=== PATIENT | female | born 1980 | race Caucasian/White ===

== ENCOUNTER 2021-10-20 10:30 | Inpatient (IN) | payer BC ==
--- NOTE | 2021-10-20 10:57 | EDM.PDOC ---
ED HPI GENERAL MEDICAL PROBLEM - General Stated Complaint: POSSIBLE KIDNEY INFECTIOIN Time Seen by Provider: 10/20/21 10:49 Source of Information: Reports: Patient, Old Records, RN, RN Notes Reviewed History Limitations: Reports: No Limitations - History of Present Illness INITIAL COMMENTS - FREE TEXT/NARRATIVE: Sammi is a 41 y/o female with stage 4 chronic kidney disease due to polycystic kidney disease who presents to the ED via personal vehicle with complaints of flank pain, dysuria, and hematuria. The patient states she has chronic bilateral lower abdominal pain and bilateral flank pain, however one week ago her pain worsened and she began to experience dysuria and hematuria. Additionally, she notes inability to fully urinate, fever, chills, and nausea with a TMax of 101.6 She has taken Tylenol-4 approximately one hour prior to her arrival to this facility. The patient denies chest pain/pressure, palpitations, shortness of breath, vomiting, or diarrhea. She attests to smoking 1/4 pack of cigarettes per day; she denies alcohol or recreational drug use. Right Flank Pain Score (Numeric/FACES): 6 headache Pain Score (Numeric/FACES): 8 - Related Data Allergies Allergy/AdvReac Type Severity Reaction Status Date / Time No Known Allergies Allergy Verified 10/20/21 11:00 Home Meds: Home Meds Aspirin [Inocente Chewable Aspirin] 81 mg PO DAILY 06/22/15 [History] Cholecalciferol (Vitamin D3) [D3-2000] 5,000 unit PO DAILY 06/22/15 [History] Acetaminophen [Tylenol Extra Strength] 1,000 mg PO Q6HR PRN 11/23/20 [History] Escitalopram Oxalate 10 mg PO DAILY 11/23/20 [History] Escitalopram Oxalate 20 mg PO DAILY 11/23/20 [History] Furosemide 20 mg PO DAILY 11/23/20 [History] Metoprolol Succinate 100 mg PO DAILY 11/23/20 [History] Multivitamin [Multi-Vitamin Daily] 1 tab PO DAILY 11/23/20 [History] hydrOXYzine HCL [hydrOXYzine] 25 mg PO BEDTIME 11/23/20 [History] Biotin 5 mg PO ASDIRECTED 11/24/20 [History] Hydrocodone/Acetaminophen [HYDROcodone-Acetaminophen 5-325 MG] 5 - 325 mg PO Q6HR PRN 11/24/20 [History] Calcium Carb/Vitamin D3/Vit K1 [Calcium + D Soft Chewable Tab] 1 tab PO DAILY 10/20/21 [History] amLODIPine [Norvasc] 5 mg PO DAILY 10/20/21 [History] cefTRIAXone [Rocephin] 1 gm IV Q24H vial 10/21/21 [Rx] Past Medical History Other HEENT History: states has blurred vision Other Cardiovascular History: 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 ED EXAM, RENAL/ - Physical Exam Exam: See Below Exam Limited By: No Limitations General Appearance: Alert, No Apparent Distress, Other (Ill-appearing ). No: Active Emesis Eye Exam: Bilateral Eye: EOMI, Normal Inspection, PERRL (3mm) Ears: Normal External Exam, Hearing Grossly Normal Nose: Normal Inspection, Normal Mucosa, No Blood Throat/Mouth: Normal Inspection, Normal Oropharynx, Normal Voice, No Airway Compromise Head: Atraumatic, Normocephalic Neck: Normal Inspection, Supple, Non-Tender, Full Range of Motion Respiratory/Chest: No Respiratory Distress, Lungs Clear, Normal Breath Sounds, No Accessory Muscle Use, Chest Non-Tender. No: Crackles, Rales, Rhonchi, Wheezing Cardiovascular: Normal Peripheral Pulses, Regular Rate, Rhythm, No Edema, No Gallop, No JVD, No Murmur, No Rub, Tachycardia GI/Abdominal: Soft, No Distention, No Abnormal Bruit, No Mass, Pelvis Stable, Tender (To bilateral lower quadrants), Abnormal Bowel Sounds (Hypoactive bowel sounds). No: Guarding, Rigid, Rebound (Female) Exam: Deferred Rectal (Female) Exam: Deferred Back Exam: Full Range of Motion, CVA Tenderness (L), CVA Tenderness (R). No: Muscle Spasm, Paraspinal Tenderness, Vertebral Tenderness Extremities: Normal Inspection, Normal Range of Motion, Non-Tender, No Pedal Edema, Normal Capillary Refill Neurological: Alert, Oriented, CN II-XII Intact, Normal Cognition, Normal Gait, No Motor/Sensory Deficits Psychiatric: Normal Affect, Normal Mood Skin Exam: Warm, Dry, Intact, Normal Color, No Rash. No: Cyanosis, Jaundice, Mottled, Pallor Course - Vital Signs Last Recorded V/S: Last Vital Signs Temp 101.7 F H 10/21/21 08:09 Pulse 93 10/21/21 08:07 Resp 18 10/21/21 07:52 BP 112/51 L 10/21/21 08:07 Pulse Ox 90 L 10/21/21 07:52 - Orders/Labs/Meds Labs: Laboratory Tests 10/20/21 10/20/21 10/20/21 Range/Units 10:35 10:35 10:59 WBC 17.0 H (5.0-10.0) 10^3/uL RBC 4.21 (4.2-5.4) 10^6/uL Hgb 13.0 (12.0-16.0) g/dL Hct 40.7 (37.0-47.0) % MCV 96.7 (80-100) fL MCH 30.9 (27.0-34.0) pg MCHC 31.9 L (33.0-35.0) g/dL Plt Count 190 (150-450) 10^3/uL Neut % (Auto) 78.1 H (42.2-75.2) % Lymph % (Auto) 8.9 L (20.5-50.1) % [place] % (Auto) 12.9 H (2-8) % Eos % (Auto) 0.0 L (1.0-3.0) % Baso % (Auto) 0.1 (0.0-1.0) % Sodium (136-145) mmol/L Potassium (3.5-5.1) mmol/L Chloride (98-107) mmol/L Carbon Dioxide (21-32) mmol/L Anion Gap (7-13) mEq/L BUN (7-18) mg/dL Creatinine (0.55-1.02) mg/dL Est Cr Clr Drug Dosing mL/min Estimated GFR (MDRD) BUN/Creatinine Ratio (No establ ref range) Glucose (70-99) mg/dL Lactic Acid (0.4-2.0) mmol/L Calcium (8.5-10.1) mg/dL Total Bilirubin (0.2-1.0) mg/dL AST (15-37) U/L ALT (14-59) U/L Alkaline Phosphatase (46-116) U/L C-Reactive Protein (0.0-0.9) mg/dL Total Protein (6.4-8.2) g/dL Albumin (3.4-5.0) g/dL Globulin Albumin/Globulin Ratio Urine Color [place] (YELLOW) Urine Appearance Cloudy (CLEAR) Urine pH 7.0 (5.0-9.0) Ur Specific [place] 1.025 (1.005-1.030) Urine Protein >=300 H (NEGATIVE) Urine Glucose (UA) Negative (NEGATIVE) Urine Ketones Negative (NEGATIVE) Urine Occult Blood Large H (NEGATIVE) Urine Nitrite Positive H (NEGATIVE) Urine Bilirubin Negative (NEGATIVE) Urine Urobilinogen 0.2 (0.2-1.0) mg/dL Ur Leukocyte Esterase Large H (NEGATIVE) Urine RBC Semi-packed H (0-5) /HPF Urine WBC Packed H (0-5/HPF) /HPF Ur Epithelial Cells Rare (NOT SEEN) /HPF Urine Bacteria Many H (0-FEW/HPF) /HPF Urine Mucus Not seen (NOT SEEN) /LPF Urine HCG, Qual Negative SARS-CoV-2 RNA (EDITA) (NEGATIVE) 10/20/21 10/20/21 10/20/21 Range/Units 10:59 10:59 13:10 WBC (5.0-10.0) 10^3/uL RBC (4.2-5.4) 10^6/uL Hgb (12.0-16.0) g/dL Hct (37.0-47.0) % MCV (80-100) fL MCH (27.0-34.0) pg MCHC (33.0-35.0) g/dL Plt Count (150-450) 10^3/uL Neut % (Auto) (42.2-75.2) % Lymph % (Auto) (20.5-50.1) % [place] % (Auto) (2-8) % Eos % (Auto) (1.0-3.0) % Baso % (Auto) (0.0-1.0) % Sodium 140 (136-145) mmol/L Potassium 3.5 (3.5-5.1) mmol/L Chloride 103 (98-107) mmol/L Carbon Dioxide 23 (21-32) mmol/L Anion Gap 17.5 H (7-13) mEq/L BUN 26 H (7-18) mg/dL Creatinine 2.29 H (0.55-1.02) mg/dL Est Cr Clr Drug Dosing 31.38 mL/min Estimated GFR (MDRD) 23 BUN/Creatinine Ratio 11.4 (No establ ref range) Glucose 116 H (70-99) mg/dL Lactic Acid 0.9 (0.4-2.0) mmol/L Calcium 8.3 L (8.5-10.1) mg/dL Total Bilirubin 0.5 (0.2-1.0) mg/dL AST 8 L (15-37) U/L ALT 18 (14-59) U/L Alkaline Phosphatase 95 (46-116) U/L C-Reactive Protein 11.6 H (0.0-0.9) mg/dL Total Protein 7.3 (6.4-8.2) g/dL Albumin 3.3 L (3.4-5.0) g/dL Globulin 4.0 Albumin/Globulin Ratio 0.83 Urine Color (YELLOW) Urine Appearance (CLEAR) Urine pH (5.0-9.0) Ur Specific [place] (1.005-1.030) Urine Protein (NEGATIVE) Urine Glucose (UA) (NEGATIVE) Urine Ketones (NEGATIVE) Urine Occult Blood (NEGATIVE) Urine Nitrite (NEGATIVE) Urine Bilirubin (NEGATIVE) Urine Urobilinogen (0.2-1.0) mg/dL Ur Leukocyte Esterase (NEGATIVE) Urine RBC (0-5) /HPF Urine WBC (0-5/HPF) /HPF Ur Epithelial Cells (NOT SEEN) /HPF Urine Bacteria (0-FEW/HPF) /HPF Urine Mucus (NOT SEEN) /LPF Urine HCG, Qual SARS-CoV-2 RNA (EDITA) Negative (NEGATIVE) Meds: Medications Discontinued Medications Generic Name Dose Route Start Last Admin Trade Name Freq PRN Reason Stop Dose Admin Acetaminophen 650 mg 10/20/21 14:38 10/21/21 08:09 Acetaminophen 325 Mg Tab PO 650 mg Q4H PRN Administration Pain (Mild 1-3)/fever Amlodipine Besylate 5 mg 10/21/21 09:00 10/21/21 08:05 Amlodipine 5 Mg Tab PO 5 mg DAILY MARCOS Administration Cholecalciferol 125 mcg 10/21/21 09:00 10/21/21 08:08 Cholecalciferol (Vitamin D3) 25 Mcg Tab PO 125 mcg DAILY MARCOS Administration Docusate Sodium 100 mg 10/20/21 14:38 Docusate Sodium 100 Mg Cap PO BID PRN Constipation Escitalopram Oxalate 30 mg 10/21/21 09:00 10/21/21 08:05 Escitalopram 10 Mg Tab PO 30 mg DAILY MARCOS Administration Furosemide 20 mg 10/21/21 09:00 10/21/21 08:03 Furosemide 20 Mg Tab PO 20 mg DAILY MARCOS Administration Hydroxyzine HCl 25 mg 10/20/21 21:00 10/20/21 21:29 Hydroxyzine Hcl 25 Mg Tab PO 25 mg BEDTIME MARCOS Administration Sodium Chloride 1,000 mls @ 999 mls/hr 10/20/21 11:20 10/20/21 11:34 Normal Saline IV 10/20/21 12:20 999 mls/hr .BOLUS ONE Administration Sodium Chloride 1,000 mls @ 999 mls/hr 10/20/21 12:56 10/20/21 13:09 Normal Saline IV 10/20/21 13:56 999 mls/hr .BOLUS ONE Administration Ceftriaxone Sodium 1 gm/ 50 mls @ 100 mls/hr 10/20/21 13:48 10/20/21 14:06 Sodium Chloride IV 10/20/21 14:17 100 mls/hr ONETIME ONE Administration Ceftriaxone Sodium 1 gm/ 50 mls @ 100 mls/hr 10/21/21 14:00 10/21/21 11:10 Sodium Chloride IV 125 mls/hr Q24H MARCOS Administration Iopamidol 100 ml 10/20/21 11:20 10/21/21 08:17 Iopamidol 612 Mg/Ml 100 Ml Bottle IVPUSH 10/20/21 11:21 Not Given ONETIME ONE Iopamidol 100 ml 10/20/21 11:49 10/20/21 12:03 Iopamidol 612 Mg/Ml 100 Ml Bottle IVPUSH 10/20/21 11:50 75 ml ONETIME ONE Administration Lorazepam 0 mg 10/20/21 18:41 Lorazepam 0.5 Mg Tab PO TITRATE PRN ciwa protocol Protocol Lorazepam 0 mg 10/20/21 18:41 Lorazepam 2 Mg/Ml Sdv IVPUSH TITRATE PRN cidc protocol Protocol Metoprolol Succinate 50 mg 10/21/21 09:00 Metoprolol Succinate 50 Mg Tab.Er PO DAILY MARCOS Metoprolol Succinate 100 mg 10/20/21 15:15 10/21/21 08:07 Metoprolol Succinate 50 Mg Tab.Er PO 100 mg DAILY MARCOS Administration Morphine Sulfate 2 mg 10/20/21 14:38 10/20/21 16:24 Morphine 2 Mg/Ml Syringe IVPUSH 2 mg Q2H PRN Administration Pain (severe 7-10) Multivitamins/Minerals 1 tab 10/21/21 09:00 10/21/21 08:06 Multivitamins With Iron/Calcium/Folic Acid/Minerals Tab PO 1 tab DAILY MARCOS Administration Acetaminophen-Cod #4 0 tab 10/20/21 14:16 10/20/21 21:29 Tabs Own Med PO 2 tab Q4H PRN Administration moderate pain Non-Formulary Medication 0.35 mg 10/21/21 09:00 Estrogen,Con/M-Progest Acet [Prempro 0.45-1.5 Mg] PO DAILY [facility] Non-Formulary Medication 160 mg 10/21/21 09:00 Valsartan [Valsartan] PO DAILY MARCOS Ondansetron HCl 4 mg 10/20/21 11:20 10/20/21 11:34 Ondansetron 4 Mg/2 Ml Sdv IVPUSH 10/20/21 11:21 4 mg ONETIME ONE Administration Ondansetron HCl 4 mg 10/20/21 14:38 Ondansetron 4 Mg Tab.Dis PO Q4H PRN nausea, able to take PO Sodium Chloride 10 ml 10/20/21 21:00 10/21/21 13:16 Sodium Chloride 0.9% 10 Ml Syringe FLUSH 10 ml 0900,2100 MARCOS Administration Sodium Chloride 10 ml 10/20/21 14:38 Sodium Chloride 0.9% 10 Ml Syringe FLUSH ASDIRECTED PRN Keep Vein Open Zolpidem Tartrate 5 mg 10/20/21 14:38 Zolpidem 5 Mg Tab PO BEDTIME PRN Sleep - Re-Assessments/Exams Free Text/Narrative Re-Assessment/Exam: 10/20/21 NS 1L bolus and Zofran 4mg IVP administered. CT abdomen/pelvis obtained. Case discussed with Dr. Murcia who accepted patient for inpatient admission. Will administer additional NS 1L bolus and ceftriaxone 1gm IVPB. Findings of examination, lab work, imaging, and conversation with Dr. Murcia reviewed with patient. Patient verbalized understanding and agreement with the plan of care. Departure - Departure Time of Disposition: 13:50 Disposition: Admitted As Inpatient 64 Clinical Impression: Polycystic kidney disease Chronic kidney disease Qualifiers: Chronic kidney disease stage: stage 4 (severe) Qualified Code(s): N18.4 - Chronic kidney disease, stage 4 (severe) Urinary tract infection Qualifiers: Urinary tract infection type: acute cystitis Hematuria presence: with hematuria Qualified Code(s): N30.01 - Acute cystitis with hematuria - Discharge Information
[2021-10-20] MEDS ORDERED: Sodium Chloride 0.9% 1,000 ML IV ONE ×2 (11:20→12:56)
[2021-10-20] MEDS ORDERED: Iopamidol 612 MG/ML 100 ML Bottle IVPUSH ONE ×2 (11:20→11:49)
[2021-10-20] MEDS ORDERED: Ondansetron 4 MG/2 ML SDV IVPUSH ONE (11:20)
[2021-10-20 11:25] LABS: ANION GAP 17.5 mEq/L (7-13)
--- NOTE | 2021-10-20 13:41 | CT ---
EXAMINATION: Abdomen Pelvis w Cont SEX: Female AGE: 41 years CLINICAL HISTORY: 41-year-old hypertensive 217 pound febrile (101.8) female smoker with chronic polycystic kidney disease, right flank pain, and abnormally elevated serum WBC (17,000). r/o pyelonephritis. Numerous liver cysts. Hysterectomy. Mastectomy. Appendectomy. Comparison CT exams October 2019 and September 2016. Scan technique: Volume acquisition of data from the abdomen and pelvis obtained without oral contrast but during/after the intravenous administration 75 cc nonionic Isovue contrast at 2 cc per second via injector while patient was lying supine on the Siemens multislice scanner [place], [place]. Patient encouraged to push oral fluids. All data archived in the PAC system for storage, reformatting axial/sagittal/coronal planes and study. Interpretation: Abnormal. 1. Numerous intrahepatic cysts of varying size as noted on previous exam October 2019. No solid intrahepatic mass lesion or cholelithiasis. No sign of intrahepatic biliary duct dilatation and although prominent common bile duct has appearance unchanged since October 2019. Serum Bilirubin? Pancreas unremarkable. Normal adrenal glands. 2. Generally enlarged kidneys, bilaterally, that are nearly completely replaced by cysts (largest peripelvic cyst, on the left, measures 6.0 cm) also unchanged. Scattered tiny punctate calcifications. 3. No pyelocaliectasis or ureterectasis i.e. no current signs of obstructive uropathy. 4. Symmetric renal perfusion/function with unobstructed contrast excretion. No renal carbuncle or abscess. No perinephric inflammatory "dirty" retroperitoneal fat or perinephric fluid collections. 5. Symmetrically distended urinary bladder with uniformly thickened wall (chronic cystitis?). 6. Numerous diverticula sigmoid colon without current signs of associated inflammation i.e. diverticulosis. 7. No pelvic or abdominal mass lesion (surgically absent uterus; no adnexal mass lesion). No mesenteric or retroperitoneal lymphadenopathy. Atheromatous calcifications normal caliber aortoiliac vessels. Surgical clips RLQ. No sign of mechanical bowel obstruction, inflammatory "dirty" peritoneal fat, ascites or free intraperitoneal air. 8. Fibrosis left lung base. Lung bases otherwise clear. Normal cardiac silhouette. No pericardial or pleural effusions. 9. Normal lumbar spine and pelvis. CONCLUSION: Numerous hepatic cysts. Polycystic kidney disease. Appendectomy. Possible cystitis. Clinical? Sigmoid diverticulosis No sign of obstructive uropathy, acute peritonitis, abdominal malignancy or mechanical bowel obstruction.
[2021-10-20] MEDS ORDERED: cefTRIAXone 1 GM in Sodium Chloride 0.9% 50 ML IV ONE (13:48)
[2021-10-20] MEDS ORDERED: ACETAMINOPHEN COD PO PRN (14:16)
[2021-10-20] MEDS ORDERED: Ondansetron 4 MG Tab.DIS PO PRN (14:38)
[2021-10-20] MEDS ORDERED: Sodium Chloride 0.9% 10 ML Syringe FLUSH PRN (14:38)
[2021-10-20] MEDS ORDERED: Zolpidem 5 MG Tab PO PRN (14:38)
[2021-10-20] MEDS ORDERED: Docusate Sodium 100 MG Cap PO PRN (14:38)
[2021-10-20] MEDS ORDERED: Morphine 2 MG/ML SYRINGE IVPUSH PRN (14:38)
--- NOTE | 2021-10-20 14:52 | PCM.HP ---
H&P History of Present Illness - General Date of Service: 10/20/21 Admit Problem/Dx: Admission Diagnosis/Problem Admission Diagnosis/Problem UTI, Urinary tract infectious disease Source of Information: Patient - History of Present Illness Initial Comments - Free Text/Narative: 41 yo with h/o CKD III, PKD chronic pain on tylenol #4 developed flank pain, mod to severe, worsening over the past 1 week prior to admisison developed fever 101.6, michael hematuria, associated dysuria no cp, no sob Right Flank Pain Score (Numeric/FACES): 6 - Related Data Allergies/Adverse Reactions: Allergies Allergy/AdvReac Type Severity Reaction Status Date / Time No Known Allergies Allergy Verified 10/20/21 11:00 Home Medications: Home Meds Aspirin [Inocente Chewable] 81 mg PO DAILY 06/22/15 [History] Cholecalciferol (Vitamin D3) [D-2000] 5,000 unit PO DAILY 06/22/15 [History] Estrogen,Con/M-Progest Acet [Prempro 0.45-1.5 MG] 0.35 mg PO DAILY 09/19/16 [History] Acetaminophen [Tylenol Extra Strength] 1,000 mg PO Q6HR PRN 11/23/20 [History] Escitalopram Oxalate 10 mg PO DAILY 11/23/20 [History] Escitalopram Oxalate 20 mg PO DAILY 11/23/20 [History] Furosemide 20 mg PO DAILY 11/23/20 [History] Metoprolol Succinate 50 mg PO DAILY 11/23/20 [History] Multivitamin [Multi-Vitamin Daily] 1 tab PO DAILY 11/23/20 [History] Valsartan 160 mg PO DAILY 11/23/20 [History] hydrOXYzine HCL [hydrOXYzine] 25 mg PO BEDTIME 11/23/20 [History] Acetaminophen with Codeine [Acetaminophen-Cod #4] 1 - 2 tab PO Q4HR PRN 11/24/20 [History] Biotin 5 mg PO ASDIRECTED 11/24/20 [History] Hydrocodone/Acetaminophen [Hydrocodone-Acetamin 5-325 mg] 5 - 325 mg PO BEDTIME PRN 11/24/20 [History] Past Medical History Other HEENT History: states has blurred vision, deaf in L ear Cardiovascular History: Reports: Hypertension Other Cardiovascular History: 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 and one in carotid Gastrointestinal History: Reports: GERD Genitourinary History: Reports: Renal Disease, Other (See Below) Other Genitourinary History: polycystic kidnesy disease Other Neuro History: aneursym - Past Surgical History Cardiovascular Surgical History: Reports: Aneurysm, Vascular Surgery Other Cardiovascular Surgeries/Procedures: aneurysms in brain clipped GI Surgical History: Reports: Appendectomy, Colonoscopy Female Surgical History: Reports: Hysterectomy Social & Family History - Family History Family Medical History: No Pertinent Family History - Tobacco Use Tobacco Use Status *Q: Current Every Day Tobacco User Years of Tobacco use: 28 Packs/Tins Daily: 1 - Caffeine Use Caffeine Use: Reports: Coffee - Alcohol Use Days Per Week of Alcohol Use: 3 Number of Drinks Per Day: 1 Total Drinks Per Week: 3 - Recreational Drug Use Recreational Drug Use: No - Living Situation & Occupation Living situation: Reports: Occupation: Employed H&P Review of Systems - Review of Systems: Review Of Systems: See Below General: Reports: Fever, Chills Cardiovascular: Denies: Chest Pain, Edema Gastrointestinal: Reports: Abdominal Pain (lower, suprapubic) Genitourinary: Reports: Dysuria, Hematuria Psychiatric: Denies: Confusion Exam - Exam Exam: See Below - Vital Signs Vital Signs: Last Vital Signs Temp 101.5 F H 10/20/21 10:54 Pulse 113 H 10/20/21 10:54 Resp 18 10/20/21 10:54 BP 141/90 H 10/20/21 10:54 Pulse Ox 94 L 10/20/21 10:54 Weight: 217 lb 9.6 oz - Exam General: Alert, Oriented Neck: Supple Lungs: Clear to Auscultation, Normal Respiratory Effort Cardiovascular: Regular Rate, Regular Rhythm GI/Abdominal Exam: Normal Bowel Sounds, Soft, Non-Tender Extremities: No Pedal Edema Skin: Warm, Dry Neuro Extensive - Mental Status: Alert, Oriented x3, Normal Mood/Affect - Patient Data Lab Results Last 24 hrs: Laboratory Results - last 24 hr 10/20/21 10/20/21 10/20/21 Range/Units 10:35 10:35 10:59 WBC 17.0 H (5.0-10.0) 10^3/uL RBC 4.21 (4.2-5.4) 10^6/uL Hgb 13.0 (12.0-16.0) g/dL Hct 40.7 (37.0-47.0) % MCV 96.7 (80-100) fL MCH 30.9 (27.0-34.0) pg MCHC 31.9 L (33.0-35.0) g/dL Plt Count 190 (150-450) 10^3/uL Neut % (Auto) 78.1 H (42.2-75.2) % Lymph % (Auto) 8.9 L (20.5-50.1) % [place] % (Auto) 12.9 H (2-8) % Eos % (Auto) 0.0 L (1.0-3.0) % Baso % (Auto) 0.1 (0.0-1.0) % Sodium (136-145) mmol/L Potassium (3.5-5.1) mmol/L Chloride (98-107) mmol/L Carbon Dioxide (21-32) mmol/L Anion Gap (7-13) mEq/L BUN (7-18) mg/dL Creatinine (0.55-1.02) mg/dL Est Cr Clr Drug Dosing mL/min Estimated GFR (MDRD) BUN/Creatinine Ratio (No establ ref range) Glucose (70-99) mg/dL Lactic Acid (0.4-2.0) mmol/L Calcium (8.5-10.1) mg/dL Total Bilirubin (0.2-1.0) mg/dL AST (15-37) U/L ALT (14-59) U/L Alkaline Phosphatase (46-116) U/L C-Reactive Protein (0.0-0.9) mg/dL Total Protein (6.4-8.2) g/dL Albumin (3.4-5.0) g/dL Globulin Albumin/Globulin Ratio Urine Color [place] (YELLOW) Urine Appearance Cloudy (CLEAR) Urine pH 7.0 (5.0-9.0) Ur Specific [place] 1.025 (1.005-1.030) Urine Protein >=300 H (NEGATIVE) Urine Glucose (UA) Negative (NEGATIVE) Urine Ketones Negative (NEGATIVE) Urine Occult Blood Large H (NEGATIVE) Urine Nitrite Positive H (NEGATIVE) Urine Bilirubin Negative (NEGATIVE) Urine Urobilinogen 0.2 (0.2-1.0) mg/dL Ur Leukocyte Esterase Large H (NEGATIVE) Urine RBC Semi-packed H (0-5) /HPF Urine WBC Packed H (0-5/HPF) /HPF Ur Epithelial Cells Rare (NOT SEEN) /HPF Urine Bacteria Many H (0-FEW/HPF) /HPF Urine Mucus Not seen (NOT SEEN) /LPF Urine HCG, Qual Negative SARS-CoV-2 RNA (EDITA) (NEGATIVE) 10/20/21 10/20/21 10/20/21 Range/Units 10:59 10:59 13:10 WBC (5.0-10.0) 10^3/uL RBC (4.2-5.4) 10^6/uL Hgb (12.0-16.0) g/dL Hct (37.0-47.0) % MCV (80-100) fL MCH (27.0-34.0) pg MCHC (33.0-35.0) g/dL Plt Count (150-450) 10^3/uL Neut % (Auto) (42.2-75.2) % Lymph % (Auto) (20.5-50.1) % [place] % (Auto) (2-8) % Eos % (Auto) (1.0-3.0) % Baso % (Auto) (0.0-1.0) % Sodium 140 (136-145) mmol/L Potassium 3.5 (3.5-5.1) mmol/L Chloride 103 (98-107) mmol/L Carbon Dioxide 23 (21-32) mmol/L Anion Gap 17.5 H (7-13) mEq/L BUN 26 H (7-18) mg/dL Creatinine 2.29 H (0.55-1.02) mg/dL Est Cr Clr Drug Dosing 31.38 mL/min Estimated GFR (MDRD) 23 BUN/Creatinine Ratio 11.4 (No establ ref range) Glucose 116 H (70-99) mg/dL Lactic Acid 0.9 (0.4-2.0) mmol/L Calcium 8.3 L (8.5-10.1) mg/dL Total Bilirubin 0.5 (0.2-1.0) mg/dL AST 8 L (15-37) U/L ALT 18 (14-59) U/L Alkaline Phosphatase 95 (46-116) U/L C-Reactive Protein 11.6 H (0.0-0.9) mg/dL Total Protein 7.3 (6.4-8.2) g/dL Albumin 3.3 L (3.4-5.0) g/dL Globulin 4.0 Albumin/Globulin Ratio 0.83 Urine Color (YELLOW) Urine Appearance (CLEAR) Urine pH (5.0-9.0) Ur Specific [place] (1.005-1.030) Urine Protein (NEGATIVE) Urine Glucose (UA) (NEGATIVE) Urine Ketones (NEGATIVE) Urine Occult Blood (NEGATIVE) Urine Nitrite (NEGATIVE) Urine Bilirubin (NEGATIVE) Urine Urobilinogen (0.2-1.0) mg/dL Ur Leukocyte Esterase (NEGATIVE) Urine RBC (0-5) /HPF Urine WBC (0-5/HPF) /HPF Ur Epithelial Cells (NOT SEEN) /HPF Urine Bacteria (0-FEW/HPF) /HPF Urine Mucus (NOT SEEN) /LPF Urine HCG, Qual SARS-CoV-2 RNA (EDITA) Negative (NEGATIVE) Result Diagrams: 10/20/21 10:59 10/20/21 10:59 - Problem List (1) Hematuria SNOMED Code(s): 97222160 ICD Code: R31.9 - HEMATURIA, UNSPECIFIED Status: Acute Current Visit: Yes (2) CKD (chronic kidney disease) stage 3, GFR 30-59 ml/min SNOMED Code(s): 951806194 ICD Code: N18.30 - CHRONIC KIDNEY DISEASE, STAGE 3 UNSPECIFIED Status: Acute Current Visit: Yes (3) PKD (polycystic kidney disease) SNOMED Code(s): 553400831 ICD Code: Q61.3 - POLYCYSTIC KIDNEY, UNSPECIFIED Status: Acute Current Visit: Yes Problem List Initiated/Reviewed/Updated: Yes Orders Last 24hrs: Active Orders 24 hr Category Date Time Status Admission Diagnosis [ADT] Stat ADT 10/20/21 13:48 Ordered Admission Status [Patient Status] [ADT] Routine ADT 10/20/21 13:48 Active Antiembolic Devices [RC] PER UNIT ROUTINE Care 10/20/21 14:40 Ordered Oxygen Therapy [RC] PRN Care 10/20/21 14:38 Ordered Peripheral IV Care [RC] . DIRECTED Care 10/20/21 14:40 Ordered Up With Assistance [RC] ASDIRECTED Care 10/20/21 14:38 Ordered VTE/DVT Education [RC] PER UNIT ROUTINE Care 10/20/21 14:38 Ordered Vital Signs [RC] Q4H Care 10/20/21 14:38 Ordered Regular Diet [DIET] Diet 10/20/21 Dinner Ordered BASIC METABOLIC PANEL,BMP [CHEM] AM Lab 10/21/21 05:11 Ordered CBC W/O DIFF,HEMOGRAM [HEME] AM Lab 10/21/21 05:11 Ordered CULTURE BLOOD [BC] Stat Lab 10/20/21 13:04 Received CULTURE BLOOD [BC] Stat Lab 10/20/21 13:08 Received CULTURE URINE [RM] Stat Lab 10/20/21 10:35 Received Acetaminophen [TylenoL] Med 10/20/21 14:38 Ordered 650 mg PO Q4H PRN Acetaminophen with Codeine [Acetaminophen-Cod #4] Med 10/20/21 14:16 Ordered 2 tab PO Q4HR PRN Cholecalciferol (Vitamin D3) [D3-2000] Med 10/21/21 09:00 Ordered 5,000 unit PO DAILY Docusate Sodium [Colace] Med 10/20/21 14:38 Ordered 100 mg PO BID PRN Escitalopram Oxalate [Escitalopram Oxalate] Med 10/21/21 09:00 Ordered 20 mg PO DAILY Escitalopram [Lexapro] Med 10/21/21 09:00 Ordered 10 mg PO DAILY Estrogen,Con/M-Progest Acet [Prempro 0.45-1.5 MG] Med 10/21/21 09:00 Ordered 0.35 mg PO DAILY Furosemide [Lasix] Med 10/21/21 09:00 Ordered 20 mg PO DAILY Metoprolol Succinate [Toprol XL] Med 10/21/21 09:00 Ordered 50 mg PO DAILY Morphine Med 10/20/21 14:38 Ordered 2 mg IVPUSH Q2H PRN Multivitamin [Multi-Vitamin Daily] Med 10/21/21 09:00 Ordered 1 tab PO DAILY Ondansetron [Zofran ODT] Med 10/20/21 14:38 Ordered 4 mg PO Q4H PRN Sodium Chloride 0.9% [Saline Flush] Med 10/20/21 21:00 Ordered 10 ml FLUSH 0900,2100 Sodium Chloride 0.9% [Saline Flush] Med 10/20/21 14:38 Ordered 10 ml FLUSH ASDIRECTED PRN Valsartan [Valsartan] Med 10/21/21 09:00 Ordered 160 mg PO DAILY Zolpidem [Ambien] Med 10/20/21 14:38 Ordered 5 mg PO BEDTIME PRN cefTRIAXone [Rocephin] 1 gm Med 10/21/21 14:30 Ordered Sodium Chloride 0.9% [Normal Saline AdvBag] 50 ml IV Q24H hydrOXYzine HCL [Atarax] Med 10/20/21 21:00 Ordered 25 mg PO BEDTIME Blood Culture x2 Reflex Set [OM.PC] Stat Ot 10/20/21 12:55 Ordered Peripheral IV Insertion Adult [OM.PC] Routine Oth 10/20/21 14:38 Ordered Saline Lock Insert [OM.PC] Routine Oth 10/20/21 14:38 Ordered Sequential Compression Device [OM.PC] Per Unit Routine Oth 10/20/21 14:39 Ordered Resuscitation Status Routine Resus Stat 10/20/21 14:38 Ordered Medication Orders Acetaminophen (Acetaminophen 325 Mg Tab) 650 mg PO Q4H PRN PRN Reason: Pain (Mild 1-3)/fever Docusate Sodium (Docusate Sodium 100 Mg Cap) 100 mg PO BID PRN PRN Reason: Constipation Escitalopram Oxalate (Escitalopram 10 Mg Tab) 10 mg PO DAILY MARCOS Furosemide (Furosemide 20 Mg Tab) 20 mg PO DAILY [facility] Hydroxyzine HCl (Hydroxyzine Hcl 25 Mg Tab) 25 mg PO BEDTIME MARCOS Ceftriaxone Sodium 1 gm/ (Sodium Chloride) 50 mls @ 100 mls/hr IV Q24H [facility] Metoprolol Succinate (Metoprolol Succinate 50 Mg Tab.Er) 50 mg PO DAILY [facility] Morphine Sulfate (Morphine 2 Mg/Ml Syringe) 2 mg IVPUSH Q2H PRN PRN Reason: Pain (severe 7-10) Non-Formulary Medication (Acetaminophen With Codeine [Acetaminophen-Cod #4]) 2 tab PO Q4HR PRN PRN Reason: moderate pain Non-Formulary Medication (Cholecalciferol (Vitamin D3) [D3-2000]) 5,000 unit PO DAILY [facility] Non-Formulary Medication (Escitalopram Oxalate [Escitalopram Oxalate]) 20 mg PO DAILY [facility] Non-Formulary Medication (Estrogen,Con/M-Progest Acet [Prempro 0.45-1.5 Mg]) 0.35 mg PO DAILY [facility] Non-Formulary Medication (Multivitamin [Multi-Vitamin Daily]) 1 tab PO DAILY MARCOS Non-Formulary Medication (Valsartan [Valsartan]) 160 mg PO DAILY [facility]ARCOS Ondansetron HCl (Ondansetron 4 Mg Tab.Dis) 4 mg PO Q4H PRN PRN Reason: nausea, able to take PO Sodium Chloride (Sodium Chloride 0.9% 10 Ml Syringe) 10 ml FLUSH 0900,2100 MARCOS Sodium Chloride (Sodium Chloride 0.9% 10 Ml Syringe) 10 ml FLUSH ASDIRECTED PRN PRN Reason: Keep Vein Open Zolpidem Tartrate (Zolpidem 5 Mg Tab) 5 mg PO BEDTIME PRN PRN Reason: Sleep Assessment/Plan Comment:: 41 yo with h/o pkd, ckd III presneted with hematuria, fever 1. uti possible pyelonphritis obtain blood cx obtain urine culture start empirical tx with IV ceftriaxone pain control with tylenol #4 as needed for moderate pain IV morphine for severe pain 2. hematuria likely secondary to UTI possible ruptured PKD cyst will monitor follow hgb for possible acute blood loss anemia 3. htn resume valsartan, metoprolol 4. dvt prophylaxis with SCDs-
[2021-10-20] MEDS: Metoprolol Succinate 50 MG Tab.ER PO SCH (16:25)
[2021-10-20] MEDS: Acetaminophen 325 MG Tab PO PRN (16:29)
[2021-10-20] MEDS ORDERED: LORazepam 0.5 MG Tab PO PRN (18:41)
[2021-10-20] MEDS ORDERED: LORazepam 2 MG/ML SDV IVPUSH PRN (18:41)
[2021-10-20] MEDS ORDERED: hydrOXYzine HCl 25 MG Tab PO SCH (21:00)
[2021-10-20] MEDS: Sodium Chloride 0.9% 10 ML Syringe FLUSH SCH (21:30)
[2021-10-21 07:03] LABS: ANION GAP 15.3 mEq/L (7-13)
[2021-10-21 07:52] VITALS: BP 112/51; PULSE 93
[2021-10-21] MEDS: Metoprolol Succinate 50 MG Tab.ER PO SCH (08:07)
[2021-10-21] MEDS: Acetaminophen 325 MG Tab PO PRN (08:09)
[2021-10-21] MEDS ORDERED: Non-Formulary Medication 1 Each (Valsartan [Valsartan] 80 MG Tablet) PO SCH (09:00)
[2021-10-21] MEDS ORDERED: Metoprolol Succinate 50 MG Tab.ER PO SCH (09:00)
[2021-10-21] MEDS ORDERED: ESCITALOPRAM OXALATE 20 MG PO SCH (09:00)
[2021-10-21] MEDS ORDERED: Cholecalciferol (Vitamin D3) 25 MCG Tab PO SCH (09:00)
[2021-10-21] MEDS ORDERED: amLODIPine 5 MG Tab PO SCH (09:00)
[2021-10-21] MEDS ORDERED: Escitalopram 10 MG Tab PO SCH (09:00)
[2021-10-21] MEDS ORDERED: Multivitamins with Iron/Calcium/Folic Acid/Minerals Tab PO SCH (09:00)
[2021-10-21] MEDS ORDERED: Furosemide 20 MG Tab PO SCH (09:00)
--- NOTE | 2021-10-21 10:26 | PCM.DCSUM1 ---
Discharge Summary - Hospital Course Free Text/Narrative:: h/o ckd III, PKD presented with hematuria, fever, flank pain noted leukocytosis since admission flank pain resolved hematuria resolved was started on ceftriaxone iv continued to have fever patient would like to be discharged and continue IV ABx therapy on out patient basis will touch base with her regarding urine culture result, if we need to change ABx Diagnosis: Stroke: No - Discharge Data Discharge Date: 10/21/21 Discharge Disposition: Home, Self-Care 01 Condition: Good - Referral to Home Health Primary Care Physician: PCP None - Discharge Diagnosis/Problem(s) (1) Hematuria SNOMED Code(s): 23797610 ICD Code: R31.9 - HEMATURIA, UNSPECIFIED Status: Acute Current Visit: Yes (2) CKD (chronic kidney disease) stage 3, GFR 30-59 ml/min SNOMED Code(s): 398221761 ICD Code: N18.30 - CHRONIC KIDNEY DISEASE, STAGE 3 UNSPECIFIED Status: Acute Current Visit: Yes (3) PKD (polycystic kidney disease) SNOMED Code(s): 839091071 ICD Code: Q61.3 - POLYCYSTIC KIDNEY, UNSPECIFIED Status: Acute Current Visit: Yes - Patient Instructions Diet: Heart Healthy Diet Activity: As Tolerated - Discharge Plan Home Medications: Home Meds Aspirin [Inocente Chewable Aspirin] 81 mg PO DAILY 06/22/15 [History] Cholecalciferol (Vitamin D3) [D3-2000] 5,000 unit PO DAILY 06/22/15 [History] Acetaminophen [Tylenol Extra Strength] 1,000 mg PO Q6HR PRN 11/23/20 [History] Escitalopram Oxalate 10 mg PO DAILY 11/23/20 [History] Escitalopram Oxalate 20 mg PO DAILY 11/23/20 [History] Furosemide 20 mg PO DAILY 11/23/20 [History] Metoprolol Succinate 100 mg PO DAILY 11/23/20 [History] Multivitamin [Multi-Vitamin Daily] 1 tab PO DAILY 11/23/20 [History] hydrOXYzine HCL [hydrOXYzine] 25 mg PO BEDTIME 11/23/20 [History] Biotin 5 mg PO ASDIRECTED 11/24/20 [History] Hydrocodone/Acetaminophen [HYDROcodone-Acetaminophen 5-325 MG] 5 - 325 mg PO Q6HR PRN 11/24/20 [History] Calcium Carb/Vitamin D3/Vit K1 [Calcium + D Soft Chewable Tab] 1 tab PO DAILY 10/20/21 [History] amLODIPine [Norvasc] 5 mg PO DAILY 10/20/21 [History] cefTRIAXone [Rocephin] 1 gm IV Q24H vial 10/21/21 [Rx] Oxygen Therapy Mode: Room Air Patient Handouts: Ceftriaxone Injection, Urinary Tract Infection, Adult, E asy-to-Read Referrals: Rain Salmeron PA-C [Ordering Only Provider] - - Discharge Summary/Plan Comment DC Time >30 min.: Yes (setting up out pt IV abx follow up) Total # of Minutes for Discharge Time: 35 min - General Info Date of Service: 10/21/21 Functional Status: Reports: Pain Controlled, Tolerating Diet, Ambulating - Review of Systems General: Reports: Fever. Denies: Weakness Pulmonary: Denies: Shortness of Breath Cardiovascular: Denies: Chest Pain, Edema Genitourinary: Denies: Hematuria Neurological: Denies: Confusion Psychiatric: Denies: Confusion, Anxiety - Patient Data Vitals - Most Recent: Last Vital Signs Temp 101.7 F H 10/21/21 08:09 Pulse 93 10/21/21 08:07 Resp 18 10/21/21 07:52 BP 112/51 L 10/21/21 08:07 Pulse Ox 90 L 10/21/21 07:52 Weight - Most Recent: 217 lb 9.6 oz I&O - Last 24 hours: Intake & Output 10/20/21 10/21/21 10/21/21 22:59 06:59 14:59 Intake Total 250 Balance 250 Lab Results - Last 24 hrs: Laboratory Results - last 24 hr 10/20/21 10/20/21 10/20/21 Range/Units 10:35 10:35 10:59 WBC 17.0 H (5.0-10.0) 10^3/uL RBC 4.21 (4.2-5.4) 10^6/uL Hgb 13.0 (12.0-16.0) g/dL Hct 40.7 (37.0-47.0) % MCV 96.7 (80-100) fL MCH 30.9 (27.0-34.0) pg MCHC 31.9 L (33.0-35.0) g/dL Plt Count 190 (150-450) 10^3/uL Neut % (Auto) 78.1 H (42.2-75.2) % Lymph % (Auto) 8.9 L (20.5-50.1) % [place] % (Auto) 12.9 H (2-8) % Eos % (Auto) 0.0 L (1.0-3.0) % Baso % (Auto) 0.1 (0.0-1.0) % Sodium (136-145) mmol/L Potassium (3.5-5.1) mmol/L Chloride (98-107) mmol/L Carbon Dioxide (21-32) mmol/L Anion Gap (7-13) mEq/L BUN (7-18) mg/dL Creatinine (0.55-1.02) mg/dL Est Cr Clr Drug Dosing mL/min Estimated GFR (MDRD) BUN/Creatinine Ratio (No establ ref range) Glucose (70-99) mg/dL Lactic Acid (0.4-2.0) mmol/L Calcium (8.5-10.1) mg/dL Total Bilirubin (0.2-1.0) mg/dL AST (15-37) U/L ALT (14-59) U/L Alkaline Phosphatase (46-116) U/L C-Reactive Protein (0.0-0.9) mg/dL Total Protein (6.4-8.2) g/dL Albumin (3.4-5.0) g/dL Globulin Albumin/Globulin Ratio Urine Color [place] (YELLOW) Urine Appearance Cloudy (CLEAR) Urine pH 7.0 (5.0-9.0) Ur Specific [place] 1.025 (1.005-1.030) Urine Protein >=300 H (NEGATIVE) Urine Glucose (UA) Negative (NEGATIVE) Urine Ketones Negative (NEGATIVE) Urine Occult Blood Large H (NEGATIVE) Urine Nitrite Positive H (NEGATIVE) Urine Bilirubin Negative (NEGATIVE) Urine Urobilinogen 0.2 (0.2-1.0) mg/dL Ur Leukocyte Esterase Large H (NEGATIVE) Urine RBC Semi-packed H (0-5) /HPF Urine WBC Packed H (0-5/HPF) /HPF Ur Epithelial Cells Rare (NOT SEEN) /HPF Urine Bacteria Many H (0-FEW/HPF) /HPF Urine Mucus Not seen (NOT SEEN) /LPF Urine HCG, Qual Negative SARS-CoV-2 RNA (EDITA) (NEGATIVE) 10/20/21 10/20/21 10/20/21 Range/Units 10:59 10:59 13:10 WBC (5.0-10.0) 10^3/uL RBC (4.2-5.4) 10^6/uL Hgb (12.0-16.0) g/dL Hct (37.0-47.0) % MCV (80-100) fL MCH (27.0-34.0) pg MCHC (33.0-35.0) g/dL Plt Count (150-450) 10^3/uL Neut % (Auto) (42.2-75.2) % Lymph % (Auto) (20.5-50.1) % [place] % (Auto) (2-8) % Eos % (Auto) (1.0-3.0) % Baso % (Auto) (0.0-1.0) % Sodium 140 (136-145) mmol/L Potassium 3.5 (3.5-5.1) mmol/L Chloride 103 (98-107) mmol/L Carbon Dioxide 23 (21-32) mmol/L Anion Gap 17.5 H (7-13) mEq/L BUN 26 H (7-18) mg/dL Creatinine 2.29 H (0.55-1.02) mg/dL Est Cr Clr Drug Dosing 31.38 mL/min Estimated GFR (MDRD) 23 BUN/Creatinine Ratio 11.4 (No establ ref range) Glucose 116 H (70-99) mg/dL Lactic Acid 0.9 (0.4-2.0) mmol/L Calcium 8.3 L (8.5-10.1) mg/dL Total Bilirubin 0.5 (0.2-1.0) mg/dL AST 8 L (15-37) U/L ALT 18 (14-59) U/L Alkaline Phosphatase 95 (46-116) U/L C-Reactive Protein 11.6 H (0.0-0.9) mg/dL Total Protein 7.3 (6.4-8.2) g/dL Albumin 3.3 L (3.4-5.0) g/dL Globulin 4.0 Albumin/Globulin Ratio 0.83 Urine Color (YELLOW) Urine Appearance (CLEAR) Urine pH (5.0-9.0) Ur Specific [place] (1.005-1.030) Urine Protein (NEGATIVE) Urine Glucose (UA) (NEGATIVE) Urine Ketones (NEGATIVE) Urine Occult Blood (NEGATIVE) Urine Nitrite (NEGATIVE) Urine Bilirubin (NEGATIVE) Urine Urobilinogen (0.2-1.0) mg/dL Ur Leukocyte Esterase (NEGATIVE) Urine RBC (0-5) /HPF Urine WBC (0-5/HPF) /HPF Ur Epithelial Cells (NOT SEEN) /HPF Urine Bacteria (0-FEW/HPF) /HPF Urine Mucus (NOT SEEN) /LPF Urine HCG, Qual SARS-CoV-2 RNA (EDITA) Negative (NEGATIVE) 10/21/21 10/21/21 Range/Units 06:25 06:25 WBC 15.7 H (5.0-10.0) 10^3/uL RBC 3.78 L (4.2-5.4) 10^6/uL Hgb 11.7 L (12.0-16.0) g/dL Hct 38.1 (37.0-47.0) % MCV 100.8 H D (80-100) fL MCH 31.0 (27.0-34.0) pg MCHC 30.7 L (33.0-35.0) g/dL Plt Count 181 (150-450) 10^3/uL Neut % (Auto) (42.2-75.2) % Lymph % (Auto) (20.5-50.1) % [place] % (Auto) (2-8) % Eos % (Auto) (1.0-3.0) % Baso % (Auto) (0.0-1.0) % Sodium 141 (136-145) mmol/L Potassium 4.3 (3.5-5.1) mmol/L Chloride 106 (98-107) mmol/L Carbon Dioxide 24 (21-32) mmol/L Anion Gap 15.3 H (7-13) mEq/L BUN 24 H (7-18) mg/dL Creatinine 2.30 H (0.55-1.02) mg/dL Est Cr Clr Drug Dosing 31.24 mL/min Estimated GFR (MDRD) 23 BUN/Creatinine Ratio (No establ ref range) Glucose 96 (70-99) mg/dL Lactic Acid (0.4-2.0) mmol/L Calcium 7.8 L (8.5-10.1) mg/dL Total Bilirubin (0.2-1.0) mg/dL AST (15-37) U/L ALT (14-59) U/L Alkaline Phosphatase (46-116) U/L C-Reactive Protein (0.0-0.9) mg/dL Total Protein (6.4-8.2) g/dL Albumin (3.4-5.0) g/dL Globulin Albumin/Globulin Ratio Urine Color (YELLOW) Urine Appearance (CLEAR) Urine pH (5.0-9.0) Ur Specific [place] (1.005-1.030) Urine Protein (NEGATIVE) Urine Glucose (UA) (NEGATIVE) Urine Ketones (NEGATIVE) Urine Occult Blood (NEGATIVE) Urine Nitrite (NEGATIVE) Urine Bilirubin (NEGATIVE) Urine Urobilinogen (0.2-1.0) mg/dL Ur Leukocyte Esterase (NEGATIVE) Urine RBC (0-5) /HPF Urine WBC (0-5/HPF) /HPF Ur Epithelial Cells (NOT SEEN) /HPF Urine Bacteria (0-FEW/HPF) /HPF Urine Mucus (NOT SEEN) /LPF Urine HCG, Qual SARS-CoV-2 RNA (EDITA) (NEGATIVE) LETICIA Results - Last 24 hrs: Microbiology 10/20/21 10:35 Urine Culture - Preliminary Urine, Voided Med Orders - Current: Current Medications Acetaminophen (Acetaminophen 325 Mg Tab) 650 mg PO Q4H PRN PRN Reason: Pain (Mild 1-3)/fever Last Admin: 10/21/21 08:09 Dose: 650 mg Documented by: Amlodipine Besylate (Amlodipine 5 Mg Tab) 5 mg PO DAILY [facility] Last Admin: 10/21/21 08:05 Dose: 5 mg Documented by: Cholecalciferol (Cholecalciferol (Vitamin D3) 25 Mcg Tab) 125 mcg PO DAILY [facility] Last Admin: 10/21/21 08:08 Dose: 125 mcg Documented by: Docusate Sodium (Docusate Sodium 100 Mg Cap) 100 mg PO BID PRN PRN Reason: Constipation Escitalopram Oxalate (Escitalopram 10 Mg Tab) 30 mg PO DAILY [facility] Last Admin: 10/21/21 08:05 Dose: 30 mg Documented by: Furosemide (Furosemide 20 Mg Tab) 20 mg PO DAILY [facility] Last Admin: 10/21/21 08:03 Dose: 20 mg Documented by: Hydroxyzine HCl (Hydroxyzine Hcl 25 Mg Tab) 25 mg PO BEDTIME [facility] Last Admin: 10/20/21 21:29 Dose: 25 mg Documented by: Ceftriaxone Sodium 1 gm/ (Sodium Chloride) 50 mls @ 100 mls/hr IV Q24H [facility] Lorazepam (Lorazepam 0.5 Mg Tab) 0 mg PO TITRATE PRN; Protocol PRN Reason: [facility] protocol Lorazepam (Lorazepam 2 Mg/Ml Sdv) 0 mg IVPUSH TITRATE PRN; Protocol PRN Reason: [facility] protocol Metoprolol Succinate (Metoprolol Succinate 50 Mg Tab.Er) 100 mg PO DAILY [facility] Last Admin: 10/21/21 08:07 Dose: 100 mg Documented by: Morphine Sulfate (Morphine 2 Mg/Ml Syringe) 2 mg IVPUSH Q2H PRN PRN Reason: Pain (severe 7-10) Last Admin: 10/20/21 16:24 Dose: 2 mg Documented by: Multivitamins/Minerals (Multivitamins With Iron/Calcium/Folic Acid/Minerals Tab) 1 tab PO DAILY [facility] Last Admin: 10/21/21 08:06 Dose: 1 tab Documented by: Acetaminophen-Cod #4 (Tabs Own Med) 0 tab PO Q4H PRN PRN Reason: moderate pain Last Admin: 10/20/21 21:29 Dose: 2 tab Documented by: Ondansetron HCl (Ondansetron 4 Mg Tab.Dis) 4 mg PO Q4H PRN PRN Reason: nausea, able to take PO Sodium Chloride (Sodium Chloride 0.9% 10 Ml Syringe) 10 ml FLUSH 0900,2100 [facility] Last Admin: 10/20/21 21:30 Dose: 10 ml Documented by: Sodium Chloride (Sodium Chloride 0.9% 10 Ml Syringe) 10 ml FLUSH ASDIRECTED PRN PRN Reason: Keep Vein Open Zolpidem Tartrate (Zolpidem 5 Mg Tab) 5 mg PO BEDTIME PRN PRN Reason: Sleep Discontinued Medications Sodium Chloride (Normal Saline) 1,000 mls @ 999 mls/hr IV .BOLUS ONE Stop: 10/20/21 12:20 Last Admin: 10/20/21 11:34 Dose: 999 mls/hr Documented by: Sodium Chloride (Normal Saline) 1,000 mls @ 999 mls/hr IV .BOLUS ONE Stop: 10/20/21 13:56 Last Admin: 10/20/21 13:09 Dose: 999 mls/hr Documented by: Ceftriaxone Sodium 1 gm/ (Sodium Chloride) 50 mls @ 100 mls/hr IV ONETIME ONE Stop: 10/20/21 14:17 Last Admin: 10/20/21 14:06 Dose: 100 mls/hr Documented by: Iopamidol (Iopamidol 612 Mg/Ml 100 Ml Bottle) 100 ml IVPUSH ONETIME ONE Stop: 10/20/21 11:21 Last Admin: 10/21/21 08:17 Dose: Not Given Documented by: Iopamidol (Iopamidol 612 Mg/Ml 100 Ml Bottle) 100 ml IVPUSH ONETIME ONE Stop: 10/20/21 11:50 Last Admin: 10/20/21 12:03 Dose: 75 ml Documented by: Metoprolol Succinate (Metoprolol Succinate 50 Mg Tab.Er) 50 mg PO DAILY [facility] Non-Formulary Medication (Estrogen,Con/M-Progest Acet [Prempro 0.45-1.5 Mg]) 0.35 mg PO DAILY [facility] Non-Formulary Medication (Valsartan [Valsartan]) 160 mg PO DAILY [facility] Ondansetron HCl (Ondansetron 4 Mg/2 Ml Sdv) 4 mg IVPUSH ONETIME ONE Stop: 10/20/21 11:21 Last Admin: 10/20/21 11:34 Dose: 4 mg Documented by: - Exam General: Reports: Alert, Oriented Neck: Reports: Supple Lungs: Reports: Clear to Auscultation, Normal Respiratory Effort Cardiovascular: Reports: Regular Rate, Regular Rhythm GI/Abdominal Exam: Normal Bowel Sounds, Soft, Non-Tender Extremities: No Pedal Edema
[2021-10-21] MEDS: Sodium Chloride 0.9% 10 ML Syringe FLUSH SCH (13:16)
[2021-10-21] MEDS ORDERED: cefTRIAXone 1 GM in Sodium Chloride 0.9% 50 ML IV SCH (14:00)
== END 2021-10-21 11:45 | disposition home or self-care (01) | DRG 463 ==
LOC: DL.ED 10:30 → DL.MS 14:02
PROVIDERS: ADMIT Internal Medicine; ATTEND Internal Medicine
DX: N39.0 Urinary tract infection, site not specified (principal); Q61.3 Polycystic kidney, unspecified; N18.30 Chronic kidney disease, stage 3 unspecified; R31.9 Hematuria, unspecified; K21.9 Gastro-esophageal reflux disease without esophagitis; F17.210 Nicotine dependence, cigarettes, uncomplicated; I12.9 Hypertensive chronic kidney disease with stage 1 through stage 4 chronic kidney disease, or unspecified chronic kidney disease; Z79.82 Long term (current) use of aspirin; Z90.710 Acquired absence of both cervix and uterus; Z79.899 Other long term (current) drug therapy; Z90.49 Acquired absence of other specified parts of digestive tract
CPT/HCPCS: 36415; 74177; 80048; 80053; 81001; 81025; 83605; 85025; 85027; 86140; 87040; 87077; 87086; 87186; 99221; 99239; A9270-GY; J0696; J2270; J2405; J7030; Q9967; U0002

== ENCOUNTER 2021-11-30 13:22 | Emergency (ER) | payer BC ==
[2021-11-30 13:59] VITALS: BP 153/108; PULSE 90
== END 2021-11-30 14:50 | disposition home or self-care (01) ==
LOC: DL.ED 13:22
DX: R31.9 Hematuria, unspecified (principal); I12.9 Hypertensive chronic kidney disease with stage 1 through stage 4 chronic kidney disease, or unspecified chronic kidney disease; N18.4 Chronic kidney disease, stage 4 (severe); Q61.3 Polycystic kidney, unspecified; Z79.82 Long term (current) use of aspirin
CPT/HCPCS: 81001; 99283

== ENCOUNTER 2024-02-05 20:13 | Emergency (ER) | payer BC ==
[2024-02-05 20:39] VITALS: BP 125/84; PULSE 78
[2024-02-05] MEDS: cefTRIAXone 1 GM, Lidocaine 1% 2.1 ML IM ONE (21:09)
== END 2024-02-05 21:31 | disposition home or self-care (01) ==
LOC: DL.ED 20:13
DX: J18.9 Pneumonia, unspecified organism (principal); I10 Essential (primary) hypertension; F17.210 Nicotine dependence, cigarettes, uncomplicated; Z79.82 Long term (current) use of aspirin; Z79.899 Other long term (current) drug therapy; Z90.710 Acquired absence of both cervix and uterus; Z99.2 Dependence on renal dialysis
CPT/HCPCS: 96372; 99283; J0696; 99284; J3490

== ENCOUNTER 2024-02-25 10:25 | Emergency (ER) | payer BC ==
[2024-02-25 11:20] VITALS: BP 136/88; PULSE 98
[2024-02-25 11:29] LABS: BASOPHILS PERCENT AUTO 0.2 % (0.0-1.0); EOSINOPHILS PERCENT AUTO 0.5 % (1.0-3.0); HEMATOCRIT 38.2 % (37.0-47.0); LYMPHOCYTES PERCENT AUTO 11.1 % (20.5-50.1); MEAN CORPUSCULAR HEMOGLOBIN 30.5 pg (27.0-34.0); MEAN CORPUSCULAR HGB CONC 31.4 g/dL (33.0-35.0); MEAN CORPUSCULAR VOLUME 97.2 fL (80-100); MONOCYTES PERCENT AUTO 12.4 % (2-8); NEUTROPHILS PERCENT AUTO 75.8 % (42.2-75.2); PLATELET COUNT,PLT 146 10^3/uL (150-450); RED BLOOD CELL COUNT 3.93 10^6/uL (4.2-5.4); WHITE BLOOD CELL COUNT,WBC 8.6 10^3/uL (5.0-10.0)
[2024-02-25] MEDS ORDERED: Take Home: Cephalexin 500 MG Cap, 6 Cap Pack PO ONE (12:22)
== END 2024-02-25 12:35 | disposition home or self-care (01) ==
LOC: DL.ED 10:25
DX: T82.838A Hemorrhage due to vascular prosthetic devices, implants and grafts, initial encounter (principal); I10 Essential (primary) hypertension; Z79.82 Long term (current) use of aspirin; Z79.899 Other long term (current) drug therapy; Z90.710 Acquired absence of both cervix and uterus
CPT/HCPCS: 36415; 85025; 99283; 99284

== ENCOUNTER 2025-01-27 11:25 | Emergency (ER) | payer BC, MEDICARE, OTHER ==
[2025-01-27 11:35] VITALS: BP 141/91; PULSE 65
== END 2025-01-27 11:47 | disposition home or self-care (01) ==
LOC: DL.ED 11:25
DX: S01.111A Laceration without foreign body of right eyelid and periocular area, initial encounter (principal); I12.0 Hypertensive chronic kidney disease with stage 5 chronic kidney disease or end stage renal disease; N18.5 Chronic kidney disease, stage 5; Z79.82 Long term (current) use of aspirin; Z79.899 Other long term (current) drug therapy; Z99.2 Dependence on renal dialysis; W22.8XXA Striking against or struck by other objects, initial encounter; Y93.89 Activity, other specified; Y99.0 Civilian activity done for income or pay
CPT/HCPCS: 99282

== ENCOUNTER 2025-08-06 10:50 | Emergency (ER) | payer BC, MEDICARE, OTHER ==
[2025-08-06] MEDS ORDERED: Sodium Chloride 0.9% 10 ML Syringe FLUSH PRN (14:51)
[2025-08-06 15:37] VITALS: BP 197/109; PULSE 70
== END 2025-08-06 17:48 | disposition home or self-care (01) ==
LOC: DL.ED 10:50
DX: S82.142A Displaced bicondylar fracture of left tibia, initial encounter for closed fracture (principal); I12.9 Hypertensive chronic kidney disease with stage 1 through stage 4 chronic kidney disease, or unspecified chronic kidney disease; F17.200 Nicotine dependence, unspecified, uncomplicated; N18.4 Chronic kidney disease, stage 4 (severe); Z79.899 Other long term (current) drug therapy; Z86.16 Personal history of COVID-19; Z90.49 Acquired absence of other specified parts of digestive tract; Z90.710 Acquired absence of both cervix and uterus; X58.XXXA Exposure to other specified factors, initial encounter; Y99.0 Civilian activity done for income or pay
CPT/HCPCS: 73562; 73700; 96374; 96376; 99284; A9270; J2270